=== PATIENT | female | born 1970 | race Caucasian/White ===

== ENCOUNTER → 2022-01-22 | Outpatient (CLI) | payer OTHER ==
[~2022-01-22] MED LIST: /FEXO18TA OR; CELE1CAP4 OR; NEURONTIN OR; PERC5TAB8 OR; SAVELLA PO; SING10TA31 OR; ZANA4CAP OR; lyrica PO; zocor OR
== END ==
LOC: M WHC 08:02
PROVIDERS: ATTEND Family Medicine
DX: Z12.31 Encounter for screening mammogram for malignant neoplasm of breast (principal)